=== PATIENT | male | born 1995 ===

== ENCOUNTER 2024-04-27 01:13 | Emergency (ER) | payer OTHER ==
[2024-04-27] MEDS ORDERED: oxyCODONE 5 MG Tab PO ONE (02:21)
[2024-04-27] MEDS: Acetaminophen 500 MG Tab PO ONE (02:28)
[2024-04-27] MEDS: Ibuprofen 600 MG Tab PO ONE (02:29)
[2024-04-27] MEDS: Diphtheria,Pertussis(Acell),Tetanus Vaccine 0.5 ML Syringe IM ONE (02:30)
[2024-04-27] MEDS ORDERED: ceFAZolin 1 GM Vial ONE (03:17)
[2024-04-27] MEDS: ceFAZolin 1 GM Vial IVPUSH ONE (03:28)
[2024-04-27] MEDS: Sodium Chloride 0.9% 10 ML Syringe FLUSH PRN (03:35)
[2024-04-27] MEDS: cefTRIAXone 1 GM Vial IM ONE (04:31)
== END 2024-04-27 03:46 ==
LOC: LL.ED 01:13
DX: S62.521B Displaced fracture of distal phalanx of right thumb, initial encounter for open fracture (principal); Z23 Encounter for immunization; Z90.49 Acquired absence of other specified parts of digestive tract; W23.1XXA Caught, crushed, jammed, or pinched between stationary objects, initial encounter; Y92.63 Factory as the place of occurrence of the external cause; Y99.0 Civilian activity done for income or pay
CPT/HCPCS: 73140-F5; 90471; 90715; 96374; 99284-25; A9270-GY; J0690